=== PATIENT | male | born 1930 | race Caucasian/White ===

== ENCOUNTER 2018-07-09 10:52 | Emergency (ER) | payer MEDICARE ==
--- NOTE | 2018-07-09 11:22 | ED ---
General Adult HPI - General Chief complaint: Weakness Stated complaint: Failure to thrive Time Seen by Provider: 07/09/18 11:00 Source: EMS, RN notes reviewed Mode of arrival: EMS Limitations: altered mental status, physical limitation - History of Present Illness Initial comments: Patient is an 87-year-old male presenting from intermediate for decreased responsiveness. Patient was reportedly transferred to the intermediate 10 days ago in a similar type state. Patient did start eating and then has now stopped again. EMS reports that patient has been unable to provide history to them and still is unable to at this time. Further history is limited. No family is present. EMS also reports that staff had question if patient should be placed on hospice. - Related Data Home Medications Medication Instructions Recorded Confirmed Aspirin EC [Ecotrin Low Dose] 81 mg PO DAILY 07/09/18 07/09/18 Calcium Carbonate/Vitamin D3 1 tab PO DAILY 07/09/18 07/09/18 [Calcium 600-Vit D3 400 Caplet] Carbidopa-Levodopa 25-100 mg 2 tab PO QID 07/09/18 07/09/18 [Sinemet 25-100] Cyanocobalamin [Vitamin B-12] 500 mcg PO DAILY 07/09/18 07/09/18 Docusate [Colace] 100 mg PO BID PRN 07/09/18 07/09/18 Enoxaparin [Lovenox] 40 mg SQ DAILY 07/09/18 07/09/18 Furosemide [Lasix] 40 mg PO DAILY 07/09/18 07/09/18 Multivitamin,Therapeutic [Thera] 1 tab PO DAILY 07/09/18 07/09/18 Omeprazole 20 mg PO DAILY 07/09/18 07/09/18 Potassium Chloride [Klor-Con 20 20 meq PO DAILY 07/09/18 07/09/18 Packets] Sennosides [Senna] 17.2 mg PO BID 07/09/18 07/09/18 Tamsulosin [Flomax] 0.4 mg PO DAILY 07/09/18 07/09/18 Ubidecarenone [Co Q-10] 300 mg PO DAILY 07/09/18 07/09/18 predniSONE 10 mg PO DAILY 07/09/18 07/09/18 traMADol HCL [Ultram] 50 mg PO Q6HR PRN 07/09/18 07/09/18 Allergies Allergy/AdvReac Type Severity Reaction Status Date / Time methocarbamol [From Robaxin] Allergy Unknown Verified 07/09/18 11:22 Review of Systems ROS Statement: Those systems with pertinent positive or pertinent negative responses have been documented in the HPI. ROS Other: All systems not noted in ROS Statement are negative. Limitations: ROS unobtainable due to patients medical condition General Exam Limitations: altered mental status, physical limitation General appearance: alert, in no apparent distress, other (Patient is alert but does not follow commands. Patient does withdraw to pain in all extremities.) Head exam: Present: normocephalic Eye exam: Present: normal appearance, PERRL ENT exam: Present: mucous membranes dry Neck exam: Present: normal inspection. Absent: tenderness, meningismus Respiratory exam: Present: normal lung sounds bilaterally Cardiovascular Exam: Present: regular rate, normal rhythm GI/Abdominal exam: Present: soft. Absent: tenderness Extremities exam: Present: normal inspection, full ROM. Absent: tenderness Neurological exam: Present: alert, altered Expanded Eye Response: (4) open spontaneously Motor Response: (4) withdraws to pain Verbal Response: incomprehensible sounds Psychiatric exam: Present: flat affect Skin exam: Present: normal color Course Vital Signs 07/09/18 10:55 Temperature 98 F Pulse Rate 87 Respiratory 15 Rate Blood Pressure 120/77 O2 Sat by Pulse 97 Oximetry - Reevaluation(s) Reevaluation #1: 07/09/18 11:13 Patient does have a code sheet stating he is no code. EKG Findings - EKG Comments: EKG Findings:: EKG shows sinus rhythm at 88. For screening AV block RI of 228. QRS 94. QT 368. QTC 445. Normal axis. Normal QRS. There is some ST depression leads V3 through V6. No old EKG available. Medical Decision Making - Medical Decision Making Patient reevaluated without significant change. Nursing staff did talk to family states patient did live on his own several weeks to months ago. They state he did break his leg and did go to the hospital. They're unclear which hospital patient went to. They're unclear which hospital patient normally goes to. Patient still unable to offer any information. Case was discussed in detail with Dr. Ham, who recommends patient get transferred someplace for neurological evaluation. Case was also discussed with at [facility], who will accept transfer. Anticoagulation was considered secondary to troponin and EKG however patient is on Lovenox chronically. - Lab Data Result diagrams: 07/09/18 13:05 07/09/18 13:05 Lab Results 07/09/18 07/09/18 07/09/18 Range/Units 12:00 12:20 13:05 WBC 14.0 H (3.8-10.6) k/uL RBC 4.07 L (4.30-5.90) m/uL Hgb 12.9 L (13.0-17.5) gm/dL Hct 41.6 (39.0-53.0) % MCV 102.0 H (80.0-100.0) fL MCH 31.7 (25.0-35.0) pg MCHC 31.1 (31.0-37.0) g/dL RDW 15.3 (11.5-15.5) % Plt Count 622 H (150-450) k/uL Neutrophils % 91 % Lymphocytes % 3 % Monocytes % 4 % Eosinophils % 0 % Basophils % 0 % Neutrophils # 12.8 H (1.3-7.7) k/uL Lymphocytes # 0.4 L (1.0-4.8) k/uL Monocytes # 0.6 (0-1.0) k/uL Eosinophils # 0.0 (0-0.7) k/uL Basophils # 0.0 (0-0.2) k/uL Hypochromasia Slight Macrocytosis Slight PT (9.0-12.0) sec INR (<1.2) APTT (22.0-30.0) sec Sodium (137-145) mmol/L Potassium (3.5-5.1) mmol/L Chloride (98-107) mmol/L Carbon Dioxide (22-30) mmol/L Anion Gap mmol/L BUN (9-20) mg/dL Creatinine (0.66-1.25) mg/dL Est GFR (CKD-EPI)AfAm (>60 ml/min/1.73 sqM) Est GFR (CKD-EPI)NonAf (>60 ml/min/1.73 sqM) Glucose (74-99) mg/dL POC Glucose (mg/dL) 126 H (75-99) mg/dL POC Glu Bus Boy ID [place] Calcium (8.4-10.2) mg/dL Total Bilirubin (0.2-1.3) mg/dL AST (17-59) U/L ALT (21-72) U/L Alkaline Phosphatase (38-126) U/L Ammonia (<30) umol/L Creatine Kinase (55-170) U/L CK-MB (CK-2) (0.0-2.4) ng/mL Troponin I (0.000-0.034) ng/mL Total Protein (6.3-8.2) g/dL Albumin (3.5-5.0) g/dL Urine Color Yellow Urine Appearance Clear (Clear) Urine pH 5.0 (5.0-8.0) Ur Specific [place] 1.021 (1.001-1.035) Urine Protein Trace H (Negative) Urine Glucose (UA) Negative (Negative) Urine Ketones Trace H (Negative) Urine Blood Negative (Negative) Urine Nitrite Negative (Negative) Urine Bilirubin Negative (Negative) Urine Urobilinogen <2.0 (<2.0) mg/dL Ur Leukocyte Esterase Negative (Negative) Urine Opiates Screen Not Detected (NotDetected) Ur Oxycodone Screen Not Detected (NotDetected) Urine Methadone Screen Not Detected (NotDetected) Ur Propoxyphene Screen Not Detected (NotDetected) Ur Barbiturates Screen Not Detected (NotDetected) U Tricyclic Antidepress Not Detected (NotDetected) Ur Phencyclidine Scrn Not Detected (NotDetected) Ur Amphetamines Screen Not Detected (NotDetected) U Methamphetamines Scrn Not Detected (NotDetected) U Benzodiazepines Scrn Not Detected (NotDetected) Urine Cocaine Screen Not Detected (NotDetected) U Marijuana (THC) Screen Not Detected (NotDetected) 07/09/18 07/09/18 07/09/18 Range/Units 13:05 13:05 13:05 WBC (3.8-10.6) k/uL RBC (4.30-5.90) m/uL Hgb (13.0-17.5) gm/dL Hct (39.0-53.0) % MCV (80.0-100.0) fL MCH (25.0-35.0) pg MCHC (31.0-37.0) g/dL RDW (11.5-15.5) % Plt Count (150-450) k/uL Neutrophils % % Lymphocytes % % Monocytes % % Eosinophils % % Basophils % % Neutrophils # (1.3-7.7) k/uL Lymphocytes # (1.0-4.8) k/uL Monocytes # (0-1.0) k/uL Eosinophils # (0-0.7) k/uL Basophils # (0-0.2) k/uL Hypochromasia Macrocytosis PT 12.9 H (9.0-12.0) sec INR 1.3 H (<1.2) APTT 27.0 (22.0-30.0) sec Sodium 159 H (137-145) mmol/L Potassium 3.4 L (3.5-5.1) mmol/L Chloride 122 H (98-107) mmol/L Carbon Dioxide 28 (22-30) mmol/L Anion Gap 9 mmol/L BUN 43 H (9-20) mg/dL Creatinine 1.09 (0.66-1.25) mg/dL Est GFR (CKD-EPI)AfAm 70 (>60 ml/min/1.73 sqM) Est GFR (CKD-EPI)NonAf 61 (>60 ml/min/1.73 sqM) Glucose 137 H (74-99) mg/dL POC Glucose (mg/dL) (75-99) mg/dL POC Glu Bus Boy ID Calcium 9.3 (8.4-10.2) mg/dL Total Bilirubin 1.6 H (0.2-1.3) mg/dL AST 28 (17-59) U/L ALT 39 (21-72) U/L Alkaline Phosphatase 196 H (38-126) U/L Ammonia (<30) umol/L Creatine Kinase 48 L (55-170) U/L CK-MB (CK-2) 1.2 (0.0-2.4) ng/mL Troponin I 0.080 H* (0.000-0.034) ng/mL Total Protein 6.4 (6.3-8.2) g/dL Albumin 3.7 (3.5-5.0) g/dL Urine Color Urine Appearance (Clear) Urine pH (5.0-8.0) Ur Specific [place] (1.001-1.035) Urine Protein (Negative) Urine Glucose (UA) (Negative) Urine Ketones (Negative) Urine Blood (Negative) Urine Nitrite (Negative) Urine Bilirubin (Negative) Urine Urobilinogen (<2.0) mg/dL Ur Leukocyte Esterase (Negative) Urine Opiates Screen (NotDetected) Ur Oxycodone Screen (NotDetected) Urine Methadone Screen (NotDetected) Ur Propoxyphene Screen (NotDetected) Ur Barbiturates Screen (NotDetected) U Tricyclic Antidepress (NotDetected) Ur Phencyclidine Scrn (NotDetected) Ur Amphetamines Screen (NotDetected) U Methamphetamines Scrn (NotDetected) U Benzodiazepines Scrn (NotDetected) Urine Cocaine Screen (NotDetected) U Marijuana (THC) Screen (NotDetected) 07/09/18 Range/Units 13:05 WBC (3.8-10.6) k/uL RBC (4.30-5.90) m/uL Hgb (13.0-17.5) gm/dL Hct (39.0-53.0) % MCV (80.0-100.0) fL MCH (25.0-35.0) pg MCHC (31.0-37.0) g/dL RDW (11.5-15.5) % Plt Count (150-450) k/uL Neutrophils % % Lymphocytes % % Monocytes % % Eosinophils % % Basophils % % Neutrophils # (1.3-7.7) k/uL Lymphocytes # (1.0-4.8) k/uL Monocytes # (0-1.0) k/uL Eosinophils # (0-0.7) k/uL Basophils # (0-0.2) k/uL Hypochromasia Macrocytosis PT (9.0-12.0) sec INR (<1.2) APTT (22.0-30.0) sec Sodium (137-145) mmol/L Potassium (3.5-5.1) mmol/L Chloride (98-107) mmol/L Carbon Dioxide (22-30) mmol/L Anion Gap mmol/L BUN (9-20) mg/dL Creatinine (0.66-1.25) mg/dL Est GFR (CKD-EPI)AfAm (>60 ml/min/1.73 sqM) Est GFR (CKD-EPI)NonAf (>60 ml/min/1.73 sqM) Glucose (74-99) mg/dL POC Glucose (mg/dL) (75-99) mg/dL POC Glu Bus Boy ID Calcium (8.4-10.2) mg/dL Total Bilirubin (0.2-1.3) mg/dL AST (17-59) U/L ALT (21-72) U/L Alkaline Phosphatase (38-126) U/L Ammonia <9 (<30) umol/L Creatine Kinase (55-170) U/L CK-MB (CK-2) (0.0-2.4) ng/mL Troponin I (0.000-0.034) ng/mL Total Protein (6.3-8.2) g/dL Albumin (3.5-5.0) g/dL Urine Color Urine Appearance (Clear) Urine pH (5.0-8.0) Ur Specific [place] (1.001-1.035) Urine Protein (Negative) Urine Glucose (UA) (Negative) Urine Ketones (Negative) Urine Blood (Negative) Urine Nitrite (Negative) Urine Bilirubin (Negative) Urine Urobilinogen (<2.0) mg/dL Ur Leukocyte Esterase (Negative) Urine Opiates Screen (NotDetected) Ur Oxycodone Screen (NotDetected) Urine Methadone Screen (NotDetected) Ur Propoxyphene Screen (NotDetected) Ur Barbiturates Screen (NotDetected) U Tricyclic Antidepress (NotDetected) Ur Phencyclidine Scrn (NotDetected) Ur Amphetamines Screen (NotDetected) U Methamphetamines Scrn (NotDetected) U Benzodiazepines Scrn (NotDetected) Urine Cocaine Screen (NotDetected) U Marijuana (THC) Screen (NotDetected) Disposition Clinical Impression: Altered mental status, Dehydration Disposition: OTHER INSTITUTION NOT DEFINED Is patient prescribed a controlled substance at d/c from ED?: No Referrals: Lorenzo Corcoran DO [Primary Care Provider] - 1-2 days Time of Disposition: 15:23 - Out of Hospital Transfer - Req. Specs Out of Hospital Transfer - Requested Specifics: Other Emergency Center
[2018-07-09 12:40] LABS: Appearance,Urine Clear (Clear); Bilirubin,Urine Negative (Negative); Blood,Urine Negative (Negative); Color,Urine Yellow; Glucose,Urine (UA) Negative (Negative); Ketones,Urine Trace (Negative); Leukocyte Esterase,Urine Negative (Negative); Nitrite,Urine Negative (Negative); Protein,Urine Trace (Negative); Specific Gravity,Urine 1.021 (1.001-1.035); Urobilinogen,Urine <2.0 mg/dL (<2.0)
[2018-07-09 12:58] LABS: Glucose,Whole Blood 126 mg/dL (75-99)
--- NOTE | 2018-07-09 13:20 | CT ---
EXAMINATION TYPE: CT brain wo con DATE OF EXAM: 07/09/2018 COMPARISON: None HISTORY: Patient poor historian. Altered mental status. CT DLP: 1129.4 mGycm Automated exposure control for dose reduction was used. TECHNIQUE: CT scan of the head is performed without contrast. FINDINGS: There is encephalomalacia within the right frontal and parietal lobes in the distribution of the right middle cerebral artery involving mao and white matter on image 36 and predominantly whi te matter more inferiorly. Confluent areas of periventricular hypoattenuation most commonly on the ba sis of chronic microangiopathy. A right posterior parietal approach intraventricular shunt catheter a ppears to cross midline terminating at the septum pellucidum. No gross discontinuity of this catheter is seen. Evaluation for transependymal edema is somewhat suboptimal as there is periventricular whit e matter change. Ventricles are prominent in size although proportionate to the sulcal atrophy and li tasneem age-related. No pronounced size of the temporal horns is seen to suggest acute hydrocephalus. No prior imaging is available for for comparison. Dystrophic right basal ganglia calcification is incid entally seen. No acute intracranial hemorrhage, midline shift or mass effect. Incidentally noted scleral calcificat ions are seen. Orbits are intact. Polypoid mucosal thickening of the right maxillary sinus is less th an 1 cm anteriorly. Remaining paranasal sinuses and mastoid air cells are well aerated. Calvarium is intact other than the willian hole for the right sided intraventricular shunt. Cerumen impaction is seen within the right external auditory canal. IMPRESSION: 1. No acute intracranial hemorrhage or midline shift. 2. 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 2. Right posterior parietal approach intraventricular catheter appears appropriately placed without d iscontinuity or significant calcifications along its course. No gross evidence of hydrocephalus altho ugh no priors are available for comparison in ventricular size. 3. Age-related cerebral atrophy and confluent periventricular chronic small vessel ischemic change, m ost commonly on the basis of chronic microangiopathy although limited in evaluation for transependyma l edema.
[2018-07-09 13:33] LABS: Amphetamine Screen,Urine Not Detected (NotDetected); Barbiturate Screen,Urine Not Detected (NotDetected); Benzodiazepines Screen,Urine Not Detected (NotDetected); Cocaine Screen,Urine Not Detected (NotDetected); Methadone Screen, Urine Not Detected (NotDetected); Opiate Screen,Urine Not Detected (NotDetected); Oxycodone Screen, Urine Not Detected (NotDetected); Phencyclidine Screen,Urine Not Detected (NotDetected); Tricyclic Antidepressant,Urine Not Detected (NotDetected); Urn Cannabinoid Scrn Not Detected (NotDetected)
[2018-07-09 13:33] LABS: Basophils % (A) 0 %; Eosinophils % (A) 0 %; HCT 41.6 % (39.0-53.0); HGB 12.9 gm/dL (13.0-17.5); Hypochromasia Slight; Lymphocytes # (A) 0.4 k/uL (1.0-4.8); Lymphocytes % (A) 3 %; MCH 31.7 pg (25.0-35.0); MCHC 31.1 g/dL (31.0-37.0); Macrocytosis Slight; Mean Platelet Volume 6.9; Monocytes # (A) 0.6 k/uL (0-1.0); Monocytes % (A) 4 %; Neutrophils # (A) 12.8 k/uL (1.3-7.7); Neutrophils % (A) 91 %; Platelet Count 622 k/uL (150-450); RBC 4.07 m/uL (4.30-5.90); RDW 15.3 % (11.5-15.5)
[2018-07-09 13:43] LABS: INR 1.3 (<1.2); Prothrombin Time 12.9 sec (9.0-12.0)
[2018-07-09 13:47] LABS: Albumin 3.7 g/dL (3.5-5.0); Calcium 9.3 mg/dL (8.4-10.2); Potassium 3.4 mmol/L (3.5-5.1); Total Bilirubin 1.6 mg/dL (0.2-1.3); Total Protein 6.4 g/dL (6.3-8.2)
--- NOTE | 2018-07-09 13:47 | XR ---
EXAMINATION TYPE: XR chest 2V DATE OF EXAM: 07/09/2018 COMPARISON: None HISTORY: 87-year-old male confusion, altered mental status TECHNIQUE: AP and lateral views FINDINGS: Heart normal size. Aorta and pulmonary vasculature within normal limits. Mild hyperinflation. Promine nt bilateral rib ends demonstrated. CERTIFIED SURGICAL TECH/FIRST ASSISTANT shunt catheter tracking down the right side of the chest. No d efinite consolidation or pleural effusion. IMPRESSION: Possible underlying emphysema. Prominent bilateral rib ends casting nodular densities over the hemith oraces. No definite acute process.
[2018-07-09 14:08] LABS: Creatine Kinase MB 1.2 ng/mL (0.0-2.4)
[2018-07-09 14:22] LABS: Troponin I 0.08 ng/mL (0.000-0.034)
[2018-07-09 15:55] VITALS: BP 154/91; PULSE 104; RESP 19
[2018-07-09 16:29] VITALS: TEMP 98
== END 2018-07-09 17:10 | disposition other institution (70) ==
LOC: EC 10:52
DX: E86.0 Dehydration (principal); R41.82 Altered mental status, unspecified; Z79.82 Long term (current) use of aspirin; Z79.01 Long term (current) use of anticoagulants; Z79.52 Long term (current) use of systemic steroids; Z79.899 Other long term (current) drug therapy; Z88.8 Allergy status to other drugs, medicaments and biological substances
CPT/HCPCS: 36415; 70450; 71046; 80053; 80306; 81003; 82140; 82550; 82553; 84484; 85025; 85610; 85730; 93005; 99285